=== PATIENT | male | born 1955 | race Caucasian/White ===

== ENCOUNTER 2023-04-13 15:00 | Outpatient (CLI) | payer OTHER, MEDICARE ==
--- NOTE | 2023-04-13 16:29 | XRAY Report ---
PROCEDURE: Finger(s) LT INDICATIONS: MALLET FINGER LT TECHNIQUE: AP hand, 2 views of the fifth finger(s) acquired. COMPARISON: None. FINDINGS: Bones: No fractures or dislocations. No suspicious bony lesions. Soft tissues: No suspicious soft tissue calcifications or masses. IMPRESSION: No acute bony abnormality. Reviewed by: Sowmya Soto MD on 04/13/2023 4:27 PM PDT Approved by: Sowmya Soto MD on 04/13/2023 4:27 PM PDT Station ID: [id number]
== END 2023-04-13 15:01 | disposition home or self-care (01) ==
LOC: DI 15:00
PROVIDERS: ATTEND Family Medicine
DX: M20.012 Mallet finger of left finger(s) (principal)